=== PATIENT | male | born 1995 | race Caucasian/White ===

== ENCOUNTER 2016-07-17 20:07 | Emergency (ER) ==
[2016-07-17] MEDS ORDERED: DERMABOND TOP ONE (20:16)
[2016-07-17] MEDS ORDERED: BOOSTRIX VACCINE IM ONE (20:16)
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
[2016-07-17] MEDS ORDERED: NORCO-5 PO ONE (21:14)
[2016-07-17] MEDS ORDERED: NORFLEX IM ONE (21:14)
[2016-07-17 21:48] VITALS: BP 115/85
--- NOTE | 2016-07-18 08:28 | Diag Imaging Result Document ---
PROCEDURE NAME: SHOULDER-LEFT - 07/17/2016 LEFT SHOULDER, THREE VIEWS: FINDINGS: There is no evidence of fracture or dislocation. No other definite bony abnormalities are present. IMPRESSION: No acute disease.
--- NOTE | 2016-07-18 09:04 | Diag Imaging Result Document ---
PROCEDURE NAME: HEAD/C-SPINE W/O CONTRAST - 07/17/2016 CT HEAD WITHOUT CONTRAST: TECHNIQUE: A dose reduction protocol was used. COMPARISON: No comparison exam. FINDINGS: There is no evidence of intracranial hemorrhage, mass effect, midline shift, or hydrocephalus. There is no skull fracture. IMPRESSION: No evidence of intracranial injury. CT CERVICAL SPINE WITHOUT CONTRAST: TECHNIQUE: Axial and reformatted sagittal and coronal images are obtained. A dose reduction protocol was used. COMPARISON: No comparison exam. FINDINGS: There is no fracture identified. There is no subluxation seen. There is no precervical soft tissue swelling identified. IMPRESSION: No evidence of fracture or subluxation. The on-call radiologist provided preliminary results at 9:17 p.m. on 07/17/2016.
== END 2016-07-17 21:42 | disposition home or self-care (01) ==
LOC: EDBD → ED 20:07
DX: S01.111A Laceration without foreign body of right eyelid and periocular area, initial encounter (principal); S40.012A Contusion of left shoulder, initial encounter; S16.1XXA Strain of muscle, fascia and tendon at neck level, initial encounter; M54.2 Cervicalgia; M25.512 Pain in left shoulder; H57.11 Ocular pain, right eye; Z23 Encounter for immunization; V89.2XXA Person injured in unspecified motor-vehicle accident, traffic, initial encounter
CPT/HCPCS: 70450; 72125; 90471; 90715; 96372; J2360